=== PATIENT | female | born 1980 | race Hispanic/Latino ===

== ENCOUNTER 2017-05-11 19:47 | Emergency (ER) | payer SELFPAY ==
[~2017-05-11] VITALS: Ht 162.6 cm; Wt 61.4 kg
[2017-05-11 20:01] VITALS: BP 123/82; PULSE 85; RESP 16; O2SAT 99
[2017-05-11] MEDS ORDERED: Trimethoprim-Sulfa 160 mg-800 mg Tablet PO ONE (21:50)
[2017-05-11] MEDS ORDERED: Lidocaine-Prilo 2.5-2.5% 30 Gm Cream TOPICAL ONE (21:50)
[2017-05-11] MEDS ORDERED: HYDROcodone-APAP 5-325 mg Tablet PO ONE (21:50)
--- NOTE | 2017-05-11 21:50 | ED.REPORT ---
HPI-General Illness Date of Service May 11, 2017 ED Provider: Roberto Goddard DO Patient is a 36 year old female who presents to the ED complaining of a "lump" in her right breast onset a week ago. Associated symptoms include breast pain, swelling and bloody pus drainage. She denies any other symptoms at this time. Nursing Notes Stated Complaint: LUMP ON RIGHT BREAST Chief Complaint: General Complaint Nursing Notes Reviewed: Yes Allergies: Coded Allergies: No Known Allergies (Unverified Allergy, Unknown, 05/11/17) General Time Seen by MD: 21:32 Chief Complaint Other (breast lump) Hx Obtained From: Patient Arrived By: Walk-in Sudden in Onset?: Yes Onset Occurred: 1 week ago Symptom Duration: Since onset Location: : Chest Quality: Painful Severity: Current: Moderate Similar Sx Previous: No Past Medical History Past Medical History none reported Smoking History Unknown if Ever Smoker Social History Other Social History: Good social support Ambulatory Status Independent Review of Systems +bloody pus drainage Full Review of Systems Constitutional: Denies: Chills, Fever Respiratory: Denies: Non-productive cough, Shortness of breath Cardiovascular: Reports: Chest pain (right breast) Skin: Denies Itching, Denies Rash Complete sys rev & neg: except as marked. Physical Exam Vital Signs Vital Signs Date Time Temp Pulse Resp B/P Pulse Ox O2 Delivery O2 Flow Rate FiO2 05/11/17 23:20 60 120/83 98 Room Air 05/11/17 20:01 36.9 85 16 123/82 99 Room Air Initial VS: Reviewed General/Constitutional: Awake, Alert Head / Eyes: Atraumatic, Normocephalic, PERRL, EOMI Respiratory / Chest: Atraumatic, No respiratory distress erythema and fluctuance over the right nipple with cellulitis extending over the right lateral aspect of the areola area is warm Adenopathy: Positive: Axillary adenopathy R Upper Extremities Upper Extremity / MS: Atraumatic, Full range of motion Skin: Warm, Dry Neurologic: Oriented X3, Speech NL Psychiatric: Affect NL, Mood NL Procedures Incision & Drainage Abscess I & D Abscess: careful to avoid deep structures in bresast. Time: 22:36 Procedure Performed by: ED physician Consent / Setup / Site Prep: Consent from patient, Time-out performed, Hand hygiene observed Location of Abscess: right nipple Skin Preparation Agent: Betadine Local Anesthesia: Other (LET) Incised Abscess with Scalpel: #11 Pus Drained: Medium Irrigation: Yes, Copious Post-Procedure / Complications: Culture obtained, Gram stain ordered, Dressing applied, No complications, Condition improved, Tolerated procedure well , Patient stable Re-Eval/Medical Decision Time of Eval: 22:10 Re-Evaluation/Progress Note: Discussed plan for I&D of abscess. Patient understands and agrees to plan. All questions were addressed. Re-Evaluation/Progress Note: Discussed plan for outpatient follow up and discharge. Patient understands and agrees to the plan. All questions were addressed. Consultation : Referral / Consult Name: Kelton Landon MD Consulted With: Surgeon Call Returned at: 21:56 Logistics Assistant: Agrees with eval, Agrees with plan Counseled Regarding: Diagnosis, Lab results, Need for follow-up, When/why to return to ED Discharge & Departure Primary Impression: Abscess Additional Impression: Cellulitis Site of cellulitis: other site Qualified Code: L03.818 - Cellulitis of other sites Disposition: Home Discharge Condition All VS Reviewed: Yes Condition: Stable Patient Instructions: Abscess (ED), Cellulitis (ED) Additional Instructions: We drained an abscess today. You also have a skin infection. Take Dicloxacillin 4 times daily for 7 days. Take Bactrim twice daily for 7 days. The wound needs to be rechecked tomorrow or the next day at the latest. If the abscess re-accumulates, it will need to be drained again. I recommend that you are revaluated at the surgical clinic, as well. After the infection has resolved, I also recommend having a mammogram to be sure there is no other underlying abnormalities. You can take 1-2 Otis every 6 hours as needed for severe pain. Do not drive or drink alcohol or consume acetaminophen while taking the Otis. Return to the emergency department if any new or worrisome symptoms develop. [employer] Drenaron un absceso hoy. Bernardino tienes angel infeccin de la piel. Tamia dicloxacilina 4 veces al da checo 7 irving. Tamia Bactrim dos veces al da checo 7 irving. La herida debe ser revisar maana o a ms tardar al da siguiente. Si el absceso se acumula nuevamente, tendr que ser vaciado otra vez. Te recomiendo que son revaluados en la [facility]. Despus de la infeccin se marinelli resuelto, tambin recomiendo tener un mamograma para asegurarse all no es ninguna otra anormalidad subyacente. Usted puede tamia 1-2 Otis cada 6 horas segn sea necesario para el dolor breanna. No no unidad o beber alcohol o consumir acetaminofn teniendo la Otis. Volver al Departamento de la emergencia si se desarrollan sntomas nuevos o preocupantes. Referrals: [facility] (PCP) Kelton Landon MD [facility] Scribe Attestation Portions of this note were transcribed by Vielka Chan. I, Dr. Goddard personally performed the history, physical exam and medical decision-making; I reviewed and confirmed the accuracy of the information in the transcribed note. Signed by: Vielka Chan, Janki, 05/11/17 Roberto Goddard DO May 11, 2017 21:50 Anabelle Chan May 11, 2017 21:53
[2017-05-11] MEDS ORDERED: _HYDROcodone/APAP 5-325 mg Tablet PO PRN (22:50)
[2017-05-11 23:20] VITALS: BP 120/83; PULSE 60; O2SAT 98
== END 2017-05-11 23:21 | disposition home or self-care (01) ==
LOC: SED 19:47
DX: N61.1 Abscess of the breast and nipple (principal); L03.818 Cellulitis of other sites